=== PATIENT | female | born 1930 | race Caucasian/White ===

== ENCOUNTER 2017-10-08 19:39 | Emergency (ER) | payer OTHER ==
[~2017-10-08] VITALS: Ht 167.6 cm; Wt 66.2 kg
[2017-10-08] MEDS ORDERED: ATENOLOL 100MG100 MG PO (20:11)
[2017-10-08] MEDS ORDERED: SYNTHROID50 MCG PO (20:12)
[2017-10-08] MEDS ORDERED: AMLODIPINE BESY10 MG PO (20:12)
[2017-10-08] MEDS ORDERED: ATORVASTATIN CA40 MG PO (20:13)
[2017-10-08] MEDS ORDERED: HYDROCHLOROTHIA25 M2 PO (20:14)
[2017-10-08] MEDS ORDERED: LISINOPRIL40 MG PO (20:15)
[2017-10-08] MEDS ORDERED: MOBIC7.5 MG PO (20:15)
== END 2017-10-08 21:34 | disposition home or self-care (01) ==
LOC: ER 19:39
DX: S00.03XA Contusion of scalp, initial encounter (principal); I10 Essential (primary) hypertension; E78.00 Pure hypercholesterolemia, unspecified; W19.XXXA Unspecified fall, initial encounter; Y93.89 Activity, other specified; Y92.89 Other specified places as the place of occurrence of the external cause; Y99.8 Other external cause status